=== PATIENT | female | born 1990 | race American Indian/Alaskan Native ===

== ENCOUNTER 2019-09-26 11:32 | Inpatient (IN) | payer MEDICAID ==
[2019-09-26] MEDS ORDERED: ACETAMINOPHEN 325 MG TAB PO PRN (12:45)
[2019-09-26] MEDS ORDERED: ONDANSETRON 4 MG/2 ML INJ IV PRN (12:45)
[2019-09-26] MEDS ORDERED: WITCH HAZEL/ GLYCERIN PAD TP PRN (12:45)
[2019-09-26] MEDS ORDERED: DOCUSATE SODIUM 100 MG CAP PO PRN (12:45)
[2019-09-26] MEDS ORDERED: diphenhydrAMINE 25 MG CAP PO PRN (12:45)
[2019-09-26] MEDS ORDERED: PRENATAL VIT27-FE FUMARATE-FOLIC ACID VIT TAB PO SCH (13:00)
[2019-09-26] MEDS: BETAMET ACET/BETAMET NA PH 6 MG/ML INJ 5 ML MDV IM SCH (14:50)
[2019-09-26 14:54] LABS: Bacteria,Urine 1+ /HPF (Negative); Bilirubin,Urine NEG (Negative); Blood,Urine SM (Negative); Color,Urine Yellow (Yellow); Urobilinogen,Urine < 2.0 mg/dL (<2.0)
[2019-09-26 14:58] LABS: WBC,Urine > 182.0 /HPF (0.0-6.0)
[2019-09-26] MEDS ORDERED: MAGNESIUM SULFATE 4 GM/100 ML BAG IV ONE (15:00)
--- NOTE | 2019-09-26 15:39 | History and Physical Report ---
History of Present Illness Date of examination: 09/26/19 Date of admission: 09/26/19 13:49 Chief complaint: Sent from office for rupture of membranes. History of present illness: Pt is a 29 yo at 27w3d EGA by 18wk US not c/w LMP who presents from [facility] for gross rupture of membranes diagnosed at the office. She reports leaking fluid for the past week. She had thought that it was a bacterial infection. She is not feeling movement today. She denies vaginal bleeding. She reports contractions every time she leaks fluid. Her co hanna has been complicated by EIF. Past History Past Medical History: other ("fluid around the heart") Past Surgical History: D&C Family/Genetic History: diabetes, hypertension Social history: no significant social history - Obstetrical History Expected Date of Delivery: 12/23/19 Actual Gestation: 27 Week(s) 3 Day(s) : 6 Para: 1 Hx # Term Pregnancies: 1 Induced : 4 Number of Living Children: 1 Medications and Allergies Allergies Allergy/AdvReac Type Severity Reaction Status Date / Time No Known Allergies Allergy Verified 09/26/19 11:37 Active Meds: Active Medications Acetaminophen (Tylenol) 650 mg PO Q4H PRN PRN Reason: Pain MILD(1-3)/Fever >100.5/ZHANG Betamethasone Acet/Betameth SodPhos (Celestone Soluspan) 12 mg IM Q24H ANNI Stop: 09/27/19 13:01 Last Admin: 09/26/19 14:50 Dose: 12 mg Documented by: Diphenhydramine HCl (Benadryl) 25 mg PO Q6H PRN PRN Reason: Itching Docusate Sodium (Colace) 100 mg PO Q12H PRN PRN Reason: Constipation Lactated Ringer's (Lactated Ringers) 1,000 mls @ 125 mls/hr IV DIRECT ANNI Ampicillin Sodium (Ampicillin/Ns 2 Gm/100 Ml) 2 gm in 100 mls @ 100 mls/hr IV Q6HR ANNI; Protocol Stop: 09/28/19 06:59 Magnesium Sulfate (Magnesium Sulfate 40gm/1000ml) 40 gm in 1,000 mls @ 50 mls/hr IV DIRECT ANNI Multivitamins/Iron/Calcium ( Vitamin) 1 each PO QDAY ANNI Ondansetron HCl (Zofran) 4 mg IV Q6H PRN PRN Reason: Nausea And Vomiting Witch Gem/Glycerin (Tucks Pad) 1 each TP PRN PRN PRN Reason: Hemorrhoids Review of Systems All systems: negative Genitourinary: leakage of fluid, contractions, no vaginal bleeding, no dysuria Psychiatric: sadness/tearfullness (given circumstance of hospital admission) - Vital Signs Vital signs: Vital Signs Pulse Pulse Ox 117 H 93 09/26/19 14:15 09/26/19 14:15 Temp Pulse Resp BP Pulse Ox 98.6 F 101 H 20 93/57 94 09/26/19 14:17 09/26/19 15:28 09/26/19 14:17 09/26/19 14:17 09/26/19 15:28 - Physical Exam Lungs: Positive: Normal air movement Abdomen: Positive: soft Genitourinary (Female): Positive: normal external genitalia Cervix: Positive: friable Uterus: Positive: enlarged (gravid, fundal height 28cm) Extremities: Positive: normal - Obstetrical FHR: category 1 Results Result Diagrams: 09/26/19 15:30 Abnormal lab results 09/26/19 Range/Units 14:02 Urine pH 8.0 H (5.0-7.0) Urine WBC (Auto) > 182.0 H (0.0-6.0) /HPF All other labs normal. Assessment and Plan A: 30 yo at 27w3d EGA prelabor rupture of membranes, clear P: Admit to antepartum service Betamethasone for surfactant development Magnesium sulfate for neuroprotection and tocolysis Latency antibiotics Continuous EFM Ultrasound for presentation and JAZMIN MD aware of patient Kassy Webb CNM
[2019-09-26] MEDS: AMPICILLIN/NS 2 GM/100 ML 2 GM/100 ML BAG IV SCH ×2 (15:53→22:00)
--- NOTE | 2019-09-26 15:53 | Ultrasound Report ---
Limited OB Ultrasound HISTORY: position, JAZMIN. Premature rupture of membranes. TECHNIQUE: Grayscale and color imaging performed. COMPARISON: None FINDINGS: There is a single viable intrauterine gestation which is cephalic in presentation. One of t he extremities appears to be interposed between the head and the cervix. The JAZMIN is 1 cm which is dec reased. Heart rate is 149 bpm. IMPRESSION: 1. Cephalic presentation with an extremity interposed between the head and the cervix. 2. Abnormal low JAZMIN consistent with history. Signer Name: Sudeep Combs MD Signed: 09/26/2019 3:49 PM Workstation Name: [id number]
[2019-09-26 16:21] LABS: Basophils % (Auto) 0.2 % (0.0-1.8); Hematocrit 30.9 % (30.3-42.9); Hemoglobin 10.1 gm/dl (10.1-14.3); Lymphocytes # (Auto) 0.9 K/mm3 (1.2-5.4); Lymphocytes % (Auto) 5.5 % (13.4-35.0); Mean Corpuscular HGB Conc 33 % (30-34); Mean Corpuscular Volume 84 fl (79-97); Monocytes # (Auto) 1.1 K/mm3 (0.0-0.8); Monocytes % (Auto) 7.1 % (0.0-7.3); Platelet Count 213 K/mm3 (140-440); Red Blood Count 3.67 M/mm3 (3.65-5.03); Red Cell Distribution Width 14.5 % (13.2-15.2)
[2019-09-26] MEDS: MAGNESIUM SULFATE 40GM/1000ML 40 GM/1,000 ML BAG IV SCH (16:22)
[2019-09-26] MEDS ORDERED: PROMETHAZINE 25 MG TAB PO PRN (16:33)
[2019-09-26] MEDS ORDERED: BUTORPHANOL 2 MG/1 ML INJ IV PRN ×2 (16:51→17:00)
--- NOTE | 2019-09-26 18:54 | Consultation ---
Consult Note - Parent Education I met with parent(s) and discussed the following:: Need for NICU admission, Poss ible need for intubation and surfactant or other resp support, Temperature regulation, Head ultrasounds to evaluate IVH, Possible need for IV fluids/TPN and IV antibiotics, Possible need for umbilical lines, Importance of providing breast milk & encouraged pumping aft delivery, Donor breast milk if baby meets criteria after , Slow feeding advancement and monitoring of tolerance. NG/OG feeds, Need to monitor for jaundice, Data for survival & survival without significant co-morbidities Parent(s) demonstrated understanding of all the information:: Yes Additional Comment: Mother adrrin consistently during consult. Offered to return at a later time, mother declined Assessment and Plan - Assessment Gestation:: 27 Estimated Weight: unknown Baby's gender: Female Additional Comment: Mother presented to L&D after OB office determined mother was ruptured an has been leaking for approx. 1 week per mother. PNR negative, GBS unknown, course complicated by MAVIS on US and referred to MFM but did not make it to appointment yet per records. - Plan Plan: Agree with Mag & steroids Will attend delivery Please call NICU with questions
[2019-09-27] MEDS: AMPICILLIN/NS 2 GM/100 ML 2 GM/100 ML BAG IV SCH ×2 (01:35→10:07)
[2019-09-27] MEDS: LACTATED RINGERS 1,000 ML IV SCH ×3 (01:36→21:42)
--- NOTE | 2019-09-27 07:58 | Progress Note ---
Assessment and Plan A/P IUP 27 weks PPROM PTL s/p betamethasone mag for neuroprotections abx latency started today s/p niccu consult awaiting MFM consult added abx for possible uti ( rocephin) Subjective - Subjective Date of service: 09/27/19 Principal diagnosis: PPROM, UTI Patient reports: loss of fluid, movement normal, no new complaints, no vaginal bleeding Objective - Vital Signs Vital Signs: Vital Signs - 12hr 09/26/19 09/26/19 09/26/19 19:58 20:00 20:02 Temperature Pulse Rate 92 H 108 H 99 H Respiratory Rate Blood Pressure O2 Sat by Pulse 100 100 100 Oximetry 09/26/19 09/26/19 09/26/19 20:04 20:06 20:08 Temperature Pulse Rate 99 H 101 H 100 H Respiratory Rate Blood Pressure O2 Sat by Pulse 100 100 100 Oximetry 09/26/19 09/26/19 09/26/19 20:10 20:11 20:12 Temperature Pulse Rate 100 H 101 H 96 H Respiratory Rate Blood Pressure 100/57 O2 Sat by Pulse 100 0 L 100 Oximetry 09/26/19 09/26/19 09/26/19 20:14 20:16 20:18 Temperature Pulse Rate 98 H 103 H 100 H Respiratory Rate Blood Pressure O2 Sat by Pulse 100 100 100 Oximetry 09/26/19 09/26/19 09/26/19 20:20 20:22 20:24 Temperature Pulse Rate 98 H 94 H 102 H Respiratory Rate Blood Pressure O2 Sat by Pulse 100 100 100 Oximetry 09/26/19 09/26/19 09/26/19 20:26 20:28 20:30 Temperature Pulse Rate 97 H 104 H 95 H Respiratory Rate Blood Pressure O2 Sat by Pulse 100 100 100 Oximetry 09/26/19 09/26/19 09/26/19 20:32 20:34 20:36 Temperature Pulse Rate 99 H 97 H 99 H Respiratory Rate Blood Pressure O2 Sat by Pulse 100 100 100 Oximetry 09/26/19 09/26/19 09/26/19 20:38 20:40 20:42 Temperature Pulse Rate 98 H 97 H 99 H Respiratory Rate Blood Pressure O2 Sat by Pulse 100 99 100 Oximetry 09/26/19 09/26/19 09/26/19 20:44 20:46 20:48 Temperature Pulse Rate 98 H 95 H 96 H Respiratory Rate Blood Pressure O2 Sat by Pulse 100 100 100 Oximetry 09/26/19 09/26/19 09/26/19 20:50 20:52 20:54 Temperature Pulse Rate 100 H 97 H 99 H Respiratory Rate Blood Pressure O2 Sat by Pulse 100 100 100 Oximetry 09/26/19 09/26/19 09/26/19 20:56 20:58 21:00 Temperature Pulse Rate 105 H 97 H 98 H Respiratory Rate Blood Pressure O2 Sat by Pulse 99 100 100 Oximetry 09/26/19 09/26/19 09/26/19 21:02 21:04 21:06 Temperature Pulse Rate 99 H 104 H 103 H Respiratory Rate Blood Pressure O2 Sat by Pulse 100 100 100 Oximetry 09/26/19 09/26/19 09/26/19 21:08 21:10 21:11 Temperature Pulse Rate 97 H 100 H 101 H Respiratory Rate Blood Pressure 102/61 O2 Sat by Pulse 100 100 Oximetry 09/26/19 09/26/19 09/26/19 21:12 21:14 21:16 Temperature Pulse Rate 101 H 100 H 102 H Respiratory Rate Blood Pressure O2 Sat by Pulse 100 100 100 Oximetry 09/26/19 09/26/19 09/26/19 21:18 21:20 21:22 Temperature Pulse Rate 100 H 103 H 98 H Respiratory Rate Blood Pressure O2 Sat by Pulse 100 99 100 Oximetry 09/26/19 09/26/19 09/26/19 21:24 21:26 21:28 Temperature Pulse Rate 105 H 103 H 99 H Respiratory Rate Blood Pressure O2 Sat by Pulse 100 100 100 Oximetry 09/26/19 09/26/19 09/26/19 21:30 21:32 21:34 Temperature Pulse Rate 103 H 99 H 102 H Respiratory Rate Blood Pressure O2 Sat by Pulse 100 100 100 Oximetry 09/26/19 09/26/19 09/26/19 21:36 21:38 21:40 Temperature Pulse Rate 94 H 100 H 99 H Respiratory Rate Blood Pressure O2 Sat by Pulse 100 100 100 Oximetry 09/26/19 09/26/19 09/26/19 21:42 21:44 21:46 Temperature Pulse Rate 102 H 99 H 96 H Respiratory Rate Blood Pressure O2 Sat by Pulse 100 100 100 Oximetry 09/26/19 09/26/19 09/26/19 21:48 21:50 21:52 Temperature Pulse Rate 100 H 101 H 103 H Respiratory Rate Blood Pressure O2 Sat by Pulse 100 100 99 Oximetry 09/26/19 09/26/19 09/26/19 21:54 21:56 21:58 Temperature Pulse Rate 99 H 90 99 H Respiratory Rate Blood Pressure O2 Sat by Pulse 100 100 100 Oximetry 09/26/19 09/26/19 09/26/19 22:00 22:02 22:04 Temperature Pulse Rate 101 H 100 H 99 H Respiratory Rate Blood Pressure O2 Sat by Pulse 98 98 100 Oximetry 09/26/19 09/26/19 09/26/19 22:06 22:08 22:10 Temperature Pulse Rate 98 H 98 H 98 H Respiratory Rate Blood Pressure O2 Sat by Pulse 100 100 100 Oximetry 09/26/19 09/26/19 09/26/19 22:11 22:12 22:14 Temperature Pulse Rate 100 H 101 H 100 H Respiratory Rate Blood Pressure 95/62 O2 Sat by Pulse 100 99 Oximetry 09/26/19 09/26/19 09/26/19 22:16 22:18 22:20 Temperature Pulse Rate 96 H 91 H 96 H Respiratory Rate Blood Pressure O2 Sat by Pulse 97 100 100 Oximetry 09/26/19 09/26/19 09/26/19 22:22 22:24 22:26 Temperature Pulse Rate 94 H 95 H 96 H Respiratory Rate Blood Pressure O2 Sat by Pulse 98 100 100 Oximetry 09/26/19 09/26/19 09/26/19 22:28 22:30 22:32 Temperature Pulse Rate 95 H 100 H 95 H Respiratory Rate Blood Pressure O2 Sat by Pulse 100 100 100 Oximetry 09/26/19 09/26/19 09/26/19 22:34 22:36 22:38 Temperature Pulse Rate 94 H 95 H 92 H Respiratory Rate Blood Pressure O2 Sat by Pulse 100 100 99 Oximetry 09/26/19 09/26/19 09/26/19 22:39 22:40 22:42 Temperature 97.9 F Pulse Rate 94 H 92 H Respiratory 16 Rate Blood Pressure O2 Sat by Pulse 100 99 Oximetry 09/26/19 09/26/19 09/26/19 22:44 22:46 22:48 Temperature Pulse Rate 87 95 H 98 H Respiratory Rate Blood Pressure O2 Sat by Pulse 99 98 100 Oximetry 09/26/19 09/26/19 09/26/19 22:50 22:52 22:54 Temperature Pulse Rate 94 H 96 H 94 H Respiratory Rate Blood Pressure O2 Sat by Pulse 100 100 100 Oximetry 09/26/19 09/26/19 09/26/19 22:56 22:58 23:00 Temperature Pulse Rate 99 H 94 H 93 H Respiratory Rate Blood Pressure O2 Sat by Pulse 100 100 100 Oximetry 09/26/19 09/26/19 09/26/19 23:02 23:04 23:06 Temperature Pulse Rate 93 H 94 H 93 H Respiratory Rate Blood Pressure O2 Sat by Pulse 100 100 98 Oximetry 09/26/19 09/26/19 09/26/19 23:07 23:08 23:10 Temperature Pulse Rate 89 94 H 94 H Respiratory Rate Blood Pressure O2 Sat by Pulse 94 98 98 Oximetry 09/26/19 09/26/19 09/26/19 23:11 23:12 23:14 Temperature Pulse Rate 90 92 H 94 H Respiratory Rate Blood Pressure 90/53 O2 Sat by Pulse 98 100 Oximetry 09/26/19 09/26/19 09/26/19 23:16 23:18 23:20 Temperature Pulse Rate 92 H 93 H 97 H Respiratory Rate Blood Pressure O2 Sat by Pulse 100 100 100 Oximetry 09/26/19 09/26/19 09/26/19 23:22 23:24 23:26 Temperature Pulse Rate 99 H 93 H 94 H Respiratory Rate Blood Pressure O2 Sat by Pulse 99 100 99 Oximetry 09/26/19 09/26/19 09/26/19 23:28 23:30 23:32 Temperature Pulse Rate 96 H 97 H 95 H Respiratory Rate Blood Pressure O2 Sat by Pulse 97 100 100 Oximetry 09/26/19 09/26/19 09/26/19 23:34 23:36 23:38 Temperature Pulse Rate 93 H 97 H 107 H Respiratory Rate Blood Pressure O2 Sat by Pulse 100 98 100 Oximetry 09/26/19 09/26/19 09/26/19 23:40 23:42 23:44 Temperature 98.1 F Pulse Rate 98 H 91 H 95 H Respiratory 16 Rate Blood Pressure O2 Sat by Pulse 99 100 100 Oximetry 09/26/19 09/26/19 09/26/19 23:46 23:48 23:50 Temperature Pulse Rate 95 H 94 H 91 H Respiratory Rate Blood Pressure O2 Sat by Pulse 100 99 100 Oximetry 09/26/19 09/26/19 09/26/19 23:52 23:54 23:56 Temperature Pulse Rate 92 H 94 H 97 H Respiratory Rate Blood Pressure O2 Sat by Pulse 100 100 100 Oximetry 09/26/19 09/27/19 09/27/19 23:58 00:00 00:02 Temperature Pulse Rate 95 H 97 H 90 Respiratory Rate Blood Pressure O2 Sat by Pulse 100 100 100 Oximetry 09/27/19 09/27/19 09/27/19 00:04 00:06 00:08 Temperature Pulse Rate 94 H 95 H 90 Respiratory Rate Blood Pressure O2 Sat by Pulse 99 99 99 Oximetry 09/27/19 09/27/19 09/27/19 00:10 00:11 00:12 Temperature Pulse Rate 90 86 87 Respiratory Rate Blood Pressure 92/59 O2 Sat by Pulse 100 100 Oximetry 09/27/19 09/27/19 09/27/19 00:14 00:16 00:18 Temperature Pulse Rate 87 89 87 Respiratory Rate Blood Pressure O2 Sat by Pulse 100 99 100 Oximetry 09/27/19 09/27/19 09/27/19 00:20 00:22 00:24 Temperature Pulse Rate 93 H 92 H 91 H Respiratory Rate Blood Pressure O2 Sat by Pulse 100 99 96 Oximetry 09/27/19 09/27/19 09/27/19 00:26 00:28 00:30 Temperature Pulse Rate 90 89 93 H Respiratory Rate Blood Pressure O2 Sat by Pulse 100 100 100 Oximetry 09/27/19 09/27/19 09/27/19 00:32 00:34 00:36 Temperature Pulse Rate 94 H 94 H 88 Respiratory Rate Blood Pressure O2 Sat by Pulse 100 100 100 Oximetry 09/27/19 09/27/19 09/27/19 00:38 00:40 00:42 Temperature Pulse Rate 94 H 94 H 92 H Respiratory 14 Rate Blood Pressure O2 Sat by Pulse 99 99 99 Oximetry 09/27/19 09/27/19 09/27/19 00:44 00:46 00:48 Temperature Pulse Rate 90 90 91 H Respiratory Rate Blood Pressure O2 Sat by Pulse 98 98 98 Oximetry 09/27/19 09/27/19 09/27/19 00:50 00:52 00:54 Temperature Pulse Rate 97 H 88 94 H Respiratory Rate Blood Pressure O2 Sat by Pulse 99 100 100 Oximetry 09/27/19 09/27/1920 00:56 00:58 01:00 Temperature Pulse Rate 102 H 93 H 91 H Respiratory Rate Blood Pressure O2 Sat by Pulse 97 100 100 Oximetry 09/27/19 09/27/19 09/27/19 01:02 01:04 01:06 Temperature Pulse Rate 87 95 H 98 H Respiratory Rate Blood Pressure O2 Sat by Pulse 100 100 100 Oximetry 09/27/19 09/27/19 09/27/19 01:08 01:10 01:11 Temperature 98.4 F Pulse Rate 97 H 79 94 H Respiratory Rate Blood Pressure 95/53 O2 Sat by Pulse 100 98 Oximetry 09/27/19 09/27/19 09/27/19 01:12 01:14 01:16 Temperature Pulse Rate 102 H 100 H 94 H Respiratory Rate Blood Pressure O2 Sat by Pulse 100 100 100 Oximetry 09/27/19 09/27/19 09/27/19 01:18 01:20 01:22 Temperature Pulse Rate 94 H 91 H 94 H Respiratory Rate Blood Pressure O2 Sat by Pulse 100 99 100 Oximetry 09/27/19 09/27/19 09/27/19 01:24 01:26 01:28 Temperature Pulse Rate 92 H 91 H 93 H Respiratory Rate Blood Pressure O2 Sat by Pulse 100 100 100 Oximetry 09/27/19 09/27/19 09/27/19 01:30 01:32 01:34 Temperature Pulse Rate 92 H 90 94 H Respiratory Rate Blood Pressure O2 Sat by Pulse 99 99 99 Oximetry 09/27/19 09/27/19 09/27/19 01:36 01:38 01:40 Temperature Pulse Rate 95 H 86 89 Respiratory 16 Rate Blood Pressure O2 Sat by Pulse 98 98 100 Oximetry 09/27/19 09/27/19 09/27/19 01:42 01:44 01:46 Temperature Pulse Rate 88 90 90 Respiratory Rate Blood Pressure O2 Sat by Pulse 99 97 99 Oximetry 09/27/19 09/27/19 09/27/19 01:48 01:50 01:52 Temperature Pulse Rate 92 H 92 H 92 H Respiratory Rate Blood Pressure O2 Sat by Pulse 98 97 97 Oximetry 09/27/19 09/27/19 09/27/19 01:54 01:56 01:58 Temperature Pulse Rate 93 H 93 H 95 H Respiratory Rate Blood Pressure O2 Sat by Pulse 98 97 97 Oximetry 09/27/19 09/27/19 09/27/19 02:00 02:02 02:04 Temperature Pulse Rate 94 H 95 H 96 H Respiratory Rate Blood Pressure O2 Sat by Pulse 97 97 97 Oximetry 09/27/19 09/27/19 09/27/19 02:06 02:08 02:10 Temperature Pulse Rate 95 H 96 H 93 H Respiratory Rate Blood Pressure O2 Sat by Pulse 97 98 97 Oximetry 09/27/19 09/27/19 09/27/19 02:11 02:12 02:14 Temperature Pulse Rate 93 H 94 H 97 H Respiratory Rate Blood Pressure 91/54 O2 Sat by Pulse 97 98 Oximetry 09/27/19 09/27/19 09/27/19 02:16 02:18 02:20 Temperature Pulse Rate 94 H 92 H 97 H Respiratory Rate Blood Pressure O2 Sat by Pulse 97 98 98 Oximetry 09/27/19 09/27/19 09/27/19 02:22 02:24 02:26 Temperature Pulse Rate 92 H 95 H 92 H Respiratory Rate Blood Pressure O2 Sat by Pulse 98 98 98 Oximetry 09/27/19 09/27/19 09/27/19 02:28 02:30 02:32 Temperature Pulse Rate 94 H 94 H 89 Respiratory Rate Blood Pressure O2 Sat by Pulse 98 98 99 Oximetry 09/27/19 09/27/19 09/27/19 02:34 02:36 02:38 Temperature Pulse Rate 94 H 88 89 Respiratory Rate Blood Pressure O2 Sat by Pulse 97 97 97 Oximetry 09/27/19 09/27/19 09/27/19 02:40 02:42 02:44 Temperature 98.0 F Pulse Rate 87 89 98 H Respiratory 14 Rate Blood Pressure O2 Sat by Pulse 98 97 98 Oximetry 09/27/19 09/27/19 09/27/19 02:46 02:48 02:50 Temperature Pulse Rate 92 H 86 86 Respiratory Rate Blood Pressure O2 Sat by Pulse 98 98 99 Oximetry 09/27/19 09/27/19 09/27/19 02:52 02:54 02:56 Temperature Pulse Rate 86 83 84 Respiratory Rate Blood Pressure O2 Sat by Pulse 99 99 97 Oximetry 09/27/19 09/27/19 09/27/19 02:58 03:00 03:02 Temperature Pulse Rate 83 82 86 Respiratory Rate Blood Pressure O2 Sat by Pulse 98 98 98 Oximetry 09/27/19 09/27/19 09/27/19 03:04 03:06 03:08 Temperature Pulse Rate 85 86 88 Respiratory Rate Blood Pressure O2 Sat by Pulse 98 98 98 Oximetry 09/27/19 09/27/19 09/27/19 03:10 03:11 03:12 Temperature Pulse Rate 85 95 H 85 Respiratory Rate Blood Pressure 90/55 O2 Sat by Pulse 98 98 Oximetry 09/27/19 09/27/19 09/27/19 03:14 03:16 03:18 Temperature Pulse Rate 86 85 86 Respiratory Rate Blood Pressure O2 Sat by Pulse 98 98 98 Oximetry 09/27/19 09/27/19 09/27/19 03:20 03:22 03:24 Temperature Pulse Rate 87 87 87 Respiratory Rate Blood Pressure O2 Sat by Pulse 98 98 98 Oximetry 09/27/19 09/27/19 09/27/19 03:26 03:28 03:30 Temperature Pulse Rate 86 88 93 H Respiratory Rate Blood Pressure O2 Sat by Pulse 98 98 98 Oximetry 09/27/19 09/27/19 09/27/19 03:32 03:34 03:36 Temperature Pulse Rate 90 83 95 H Respiratory Rate Blood Pressure O2 Sat by Pulse 98 98 99 Oximetry 09/27/19 09/27/19 09/27/19 03:38 03:40 03:42 Temperature 98.3 F Pulse Rate 98 H 92 H 95 H Respiratory 14 Rate Blood Pressure O2 Sat by Pulse 100 99 98 Oximetry 09/27/19 09/27/19 09/27/19 03:44 03:46 03:48 Temperature Pulse Rate 84 85 85 Respiratory Rate Blood Pressure O2 Sat by Pulse 100 100 100 Oximetry 09/27/19 09/27/19 09/27/19 03:50 03:52 03:54 Temperature Pulse Rate 88 88 84 Respiratory Rate Blood Pressure O2 Sat by Pulse 100 100 100 Oximetry 09/27/19 09/27/19 09/27/19 03:56 03:58 04:00 Temperature Pulse Rate 83 85 87 Respiratory Rate Blood Pressure O2 Sat by Pulse 99 100 99 Oximetry 09/27/19 09/27/19 09/27/19 04:02 04:04 04:06 Temperature Pulse Rate 86 86 84 Respiratory Rate Blood Pressure O2 Sat by Pulse 99 99 99 Oximetry 09/27/19 09/27/19 09/27/19 04:08 04:10 04:11 Temperature Pulse Rate 80 82 90 Respiratory Rate Blood Pressure 100/58 O2 Sat by Pulse 98 98 Oximetry 09/27/19 09/27/19 09/27/19 04:12 04:14 04:16 Temperature Pulse Rate 85 85 85 Respiratory Rate Blood Pressure O2 Sat by Pulse 99 98 98 Oximetry 09/27/19 09/27/19 09/27/19 04:18 04:20 04:22 Temperature Pulse Rate 86 86 85 Respiratory Rate Blood Pressure O2 Sat by Pulse 98 98 98 Oximetry 09/27/19 09/27/19 09/27/19 04:24 04:26 04:28 Temperature Pulse Rate 87 86 86 Respiratory Rate Blood Pressure O2 Sat by Pulse 98 98 98 Oximetry 09/27/19 09/27/19 09/27/19 04:30 04:32 04:34 Temperature Pulse Rate 82 88 83 Respiratory Rate Blood Pressure O2 Sat by Pulse 99 99 98 Oximetry 09/27/19 09/27/19 09/27/19 04:36 04:38 04:40 Temperature Pulse Rate 83 86 88 Respiratory 16 Rate Blood Pressure O2 Sat by Pulse 98 99 98 Oximetry 09/27/19 09/27/19 09/27/19 04:42 04:44 04:46 Temperature Pulse Rate 89 89 91 H Respiratory Rate Blood Pressure O2 Sat by Pulse 98 98 98 Oximetry 09/27/19 09/27/19 09/27/19 04:48 04:50 04:52 Temperature Pulse Rate 89 90 93 H Respiratory Rate Blood Pressure O2 Sat by Pulse 98 98 96 Oximetry 09/27/19 09/27/19 09/27/19 04:54 04:56 04:58 Temperature Pulse Rate 93 H 87 84 Respiratory Rate Blood Pressure O2 Sat by Pulse 98 98 98 Oximetry 09/27/19 09/27/19 09/27/19 05:00 05:02 05:04 Temperature Pulse Rate 85 87 85 Respiratory Rate Blood Pressure O2 Sat by Pulse 98 98 98 Oximetry 09/27/19 09/27/19 09/27/19 05:06 05:08 05:10 Temperature Pulse Rate 82 84 84 Respiratory Rate Blood Pressure O2 Sat by Pulse 98 98 98 Oximetry 09/27/19 09/27/19 09/27/19 05:11 05:12 05:14 Temperature Pulse Rate 85 84 84 Respiratory Rate Blood Pressure 92/58 O2 Sat by Pulse 99 98 Oximetry 09/27/19 09/27/19 09/27/19 05:16 05:18 05:20 Temperature Pulse Rate 95 H 88 87 Respiratory Rate Blood Pressure O2 Sat by Pulse 96 99 100 Oximetry 09/27/19 09/27/19 09/27/19 05:22 05:24 05:26 Temperature Pulse Rate 85 82 81 Respiratory Rate Blood Pressure O2 Sat by Pulse 100 100 100 Oximetry 09/27/19 09/27/19 09/27/19 05:28 05:30 05:32 Temperature Pulse Rate 84 82 90 Respiratory Rate Blood Pressure O2 Sat by Pulse 100 100 100 Oximetry 09/27/19 09/27/19 09/27/19 05:34 05:36 05:38 Temperature Pulse Rate 87 74 85 Respiratory Rate Blood Pressure O2 Sat by Pulse 100 93 100 Oximetry 09/27/19 09/27/19 09/27/19 05:40 05:42 05:44 Temperature 98.2 F Pulse Rate 84 83 84 Respiratory 14 Rate Blood Pressure O2 Sat by Pulse 98 100 100 Oximetry 09/27/19 09/27/19 09/27/19 05:46 05:48 05:50 Temperature Pulse Rate 85 87 85 Respiratory Rate Blood Pressure O2 Sat by Pulse 100 99 100 Oximetry 09/27/19 09/27/19 09/27/19 05:52 05:54 05:56 Temperature Pulse Rate 87 85 85 Respiratory Rate Blood Pressure O2 Sat by Pulse 100 100 100 Oximetry 09/27/19 09/27/19 09/27/19 05:58 06:00 06:02 Temperature Pulse Rate 82 85 83 Respiratory Rate Blood Pressure O2 Sat by Pulse 100 98 99 Oximetry 09/27/19 09/27/19 09/27/19 06:04 06:06 06:08 Temperature Pulse Rate 82 85 83 Respiratory Rate Blood Pressure O2 Sat by Pulse 98 99 98 Oximetry 09/27/19 09/27/19 09/27/19 06:10 06:11 06:12 Temperature Pulse Rate 86 90 94 H Respiratory Rate Blood Pressure 88/54 O2 Sat by Pulse 98 99 Oximetry 09/27/19 09/27/19 09/27/19 06:14 06:16 06:18 Temperature Pulse Rate 84 83 83 Respiratory Rate Blood Pressure 89/58 O2 Sat by Pulse 99 98 98 Oximetry 09/27/19 09/27/1920 06:20 06:22 06:24 Temperature Pulse Rate 84 86 87 Respiratory Rate Blood Pressure O2 Sat by Pulse 98 98 98 Oximetry 09/27/19 09/27/19 09/27/19 06:26 06:28 06:30 Temperature Pulse Rate 86 88 89 Respiratory Rate Blood Pressure O2 Sat by Pulse 98 98 98 Oximetry 09/27/19 09/27/19 09/27/19 06:32 06:34 06:36 Temperature Pulse Rate 90 90 91 H Respiratory Rate Blood Pressure O2 Sat by Pulse 98 98 98 Oximetry 09/27/19 09/27/19 09/27/19 06:38 06:40 06:42 Temperature Pulse Rate 91 H 89 89 Respiratory 14 Rate Blood Pressure O2 Sat by Pulse 98 99 99 Oximetry 09/27/19 09/27/19 09/27/19 06:44 06:46 06:48 Temperature Pulse Rate 94 H 91 H 91 H Respiratory Rate Blood Pressure O2 Sat by Pulse 99 99 99 Oximetry 09/27/19 09/27/19 09/27/19 06:50 06:51 06:52 Temperature 98.1 F Pulse Rate 93 H 88 Respiratory Rate Blood Pressure O2 Sat by Pulse 99 100 Oximetry 09/27/19 09/27/19 09/27/19 06:54 06:55 06:56 Temperature Pulse Rate 91 H 91 H 89 Respiratory Rate Blood Pressure O2 Sat by Pulse 81 L 76 L 100 Oximetry 09/27/19 09/27/19 09/27/19 06:58 07:00 07:02 Temperature Pulse Rate 82 84 81 Respiratory Rate Blood Pressure O2 Sat by Pulse 100 93 100 Oximetry 09/27/19 09/27/19 09/27/19 07:04 07:06 07:08 Temperature Pulse Rate 90 85 86 Respiratory Rate Blood Pressure O2 Sat by Pulse 99 100 100 Oximetry 09/27/19 09/27/19 09/27/19 07:10 07:11 07:12 Temperature Pulse Rate 86 85 88 Respiratory Rate Blood Pressure 93/57 O2 Sat by Pulse 100 98 Oximetry 09/27/19 09/27/19 09/27/19 07:14 07:16 07:18 Temperature Pulse Rate 89 89 88 Respiratory Rate Blood Pressure O2 Sat by Pulse 100 100 99 Oximetry 09/27/19 09/27/19 09/27/19 07:19 07:20 07:22 Temperature 97.7 F Pulse Rate 88 83 Respiratory Rate Blood Pressure O2 Sat by Pulse 100 100 Oximetry 09/27/19 09/27/19 09/27/19 07:24 07:26 07:28 Temperature Pulse Rate 83 91 H 90 Respiratory Rate Blood Pressure O2 Sat by Pulse 100 100 100 Oximetry 09/27/19 09/27/19 09/27/19 07:30 07:32 07:34 Temperature Pulse Rate 93 H 90 86 Respiratory Rate Blood Pressure O2 Sat by Pulse 100 99 100 Oximetry 09/27/19 09/27/19 09/27/19 07:36 07:38 07:40 Temperature Pulse Rate 83 85 85 Respiratory Rate Blood Pressure O2 Sat by Pulse 100 99 99 Oximetry 09/27/19 09/27/19 09/27/19 07:42 07:44 07:46 Temperature Pulse Rate 88 86 85 Respiratory Rate Blood Pressure O2 Sat by Pulse 98 98 98 Oximetry 09/27/19 09/27/19 09/27/19 07:48 07:50 07:52 Temperature Pulse Rate 88 90 88 Respiratory Rate Blood Pressure O2 Sat by Pulse 98 98 98 Oximetry 09/27/19 07:54 Temperature Pulse Rate 88 Respiratory Rate Blood Pressure O2 Sat by Pulse 98 Oximetry - Exam Breasts: normal Cardiovascular: Regular rate, Normal S1 Lungs: Clear to auscultation, Normal air movement Abdomen: Present: normal appearance, soft, normal bowel sounds. Absent: distention, tenderness, guarding Vulva: both: normal Uterus: Present: normal, firm, fundal height below umbilicus. Absent: bogginess, tenderness FHR: category 1 Cervical Dilatation: 2 Uterine Contraction Pattern: Irregular Uterine Tone Measurement Phase: Contraction Uterine Contraction Intensity: Mild Extremities: normal Deep Tendon Reflex Grade: Normal +2 - Labs Labs: Abnormal Labs 09/26/19 09/26/19 09/26/19 14:02 15:30 19:56 WBC 16.0 H Lymph % (Auto) 5.5 L Lymph # 0.9 L [place] # 1.1 H Seg Neutrophils % 87.2 H Seg Neutrophils # 14.0 H Magnesium 5.70 H Urine pH 8.0 H Urine WBC (Auto) > 182.0 H 09/27/19 00:50 WBC Lymph % (Auto) Lymph # [place] # Seg Neutrophils % Seg Neutrophils # Magnesium 6.40 H Urine pH Urine WBC (Auto) Laboratory Results - last 24 hr 09/26/19 09/26/19 09/26/19 14:02 15:30 15:30 WBC 16.0 H RBC 3.67 Hgb 10.1 Hct 30.9 MCV 84 MCH 28 MCHC 33 RDW 14.5 Plt Count 213 Lymph % (Auto) 5.5 L [place] % (Auto) 7.1 Eos % (Auto) 0.0 Baso % (Auto) 0.2 Lymph # 0.9 L [place] # 1.1 H Eos # 0.0 Baso # 0.0 Seg Neutrophils % 87.2 H Seg Neutrophils # 14.0 H Magnesium Urine Color Yellow Urine Turbidity Cloudy Urine pH 8.0 H Ur Specific [place] 1.008 Urine Protein 30 mg/dl Urine Glucose (UA) Neg Urine Ketones Tr Urine Blood Sm Urine Nitrite Neg Urine Bilirubin Neg Urine Urobilinogen < 2.0 Ur Leukocyte Esterase Lg Urine WBC (Auto) > 182.0 H Urine RBC (Auto) 37.0 U Epithel Cells (Auto) 2.0 Urine Bacteria (Auto) 1+ Urine WBC Clumps 3+ Blood Type O POSITIVE Antibody Screen Negative 09/26/19 09/27/19 19:56 00:50 WBC RBC Hgb Hct MCV MCH MCHC RDW Plt Count Lymph % (Auto) [place] % (Auto) Eos % (Auto) Baso % (Auto) Lymph # [place] # Eos # Baso # Seg Neutrophils % Seg Neutrophils # Magnesium 5.70 H 6.40 H Urine Color Urine Turbidity Urine pH Ur Specific [place] Urine Protein Urine Glucose (UA) Urine Ketones Urine Blood Urine Nitrite Urine Bilirubin Urine Urobilinogen Ur Leukocyte Esterase Urine WBC (Auto) Urine RBC (Auto) U Epithel Cells (Auto) Urine Bacteria (Auto) Urine WBC Clumps Blood Type Antibody Screen
[2019-09-27] MEDS ORDERED: cefTRIAXone/NS 1 GM/50 ML 1 GM/50 ML BAG IV SCH (10:00)
--- NOTE | 2019-09-27 10:52 | Consultation ---
History of Present Illness Consult date: 09/27/19 Reason for consult: PROM History of present illness: Ms. Allison is a 29 y/o at 27+4 wks GA who is admitted in the setting of prelabor rupture of membranes. In discussion with the patient, the patient states that she started having leakage of clear fluid from the vagina last week but did not contact her OBGYN. She presented to a routine outpatient appointment yesterday and was found to be grossly ruptured and admitted to the hospital. She has been placed on latency antibiotics, magnesium sulfate and betamethasone. Currently, she denies CTX/VB. She reports leakage of fluid per vagina. +FM. The patient states that she had a cervical exam and was told that she is 2cm dilated. Past History Past Medical History: other ("fluid around the heart") Past Surgical History: D&C Family/Genetic History: diabetes, hypertension - Obstetrical History : 6 Para: 1 Hx # Term Pregnancies: 1 Spontaneous Abortions: 4 Number of Living Children: 1 Medications and Allergies Allergies Allergy/AdvReac Type Severity Reaction Status Date / Time No Known Allergies Allergy Verified 09/26/19 11:37 Active Meds: Active Medications Acetaminophen (Tylenol) 650 mg PO Q4H PRN PRN Reason: Pain MILD(1-3)/Fever >100.5/ZHANG Last Admin: 09/26/19 16:10 Dose: 650 mg Documented by: Betamethasone Acet/Betameth SodPhos (Celestone Soluspan) 12 mg IM Q24H ANNI Stop: 09/27/19 13:01 Last Admin: 09/26/19 14:50 Dose: 12 mg Documented by: Butorphanol Tartrate (Stadol) 2 mg IV Q2H PRN PRN Reason: Labor Pain Diphenhydramine HCl (Benadryl) 25 mg PO Q6H PRN PRN Reason: Itching Docusate Sodium (Colace) 100 mg PO Q12H PRN PRN Reason: Constipation Lactated Ringer's (Lactated Ringers) 1,000 mls @ 125 mls/hr IV DIRECT ANNI Last Admin: 09/27/19 01:36 Dose: 125 mls/hr Documented by: Ampicillin Sodium (Ampicillin/Ns 2 Gm/100 Ml) 2 gm in 100 mls @ 100 mls/hr IV Q6HR ANNI; Protocol Stop: 09/28/19 06:59 Last Admin: 09/27/19 10:07 Dose: 100 mls/hr Documented by: Magnesium Sulfate (Magnesium Sulfate 40gm/1000ml) 40 gm in 1,000 mls @ 50 mls/hr IV DIRECT ANNI Last Admin: 09/26/19 16:22 Dose: 2 gm/hr, 50 mls/hr Documented by: Ceftriaxone Sodium (Rocephin/Ns 1 Gm/50 Ml) 1 gm in 50 mls @ 100 mls/hr IV Q24HR ANNI; Protocol Erythromycin Lactobionate 250 (mg/ Sodium Chloride) 100 mls @ 100 mls/hr IV Q6HR ANNI; Protocol Stop: 09/29/19 06:59 Multivitamins/Iron/Calcium ( Vitamin) 1 each PO QDAY ANNI Last Admin: 09/27/19 10:07 Dose: 1 each Documented by: Ondansetron HCl (Zofran) 4 mg IV Q6H PRN PRN Reason: Nausea And Vomiting Promethazine HCl (Phenergan) 25 mg PO Q6H PRN PRN Reason: Nausea And Vomiting Witch Gem/Glycerin (Tucks Pad) 1 each TP PRN PRN PRN Reason: Hemorrhoids - Vital Signs Vital signs: Vital Signs Pulse Pulse Ox 117 H 93 09/26/19 14:15 09/26/19 14:15 Temp Pulse Resp BP Pulse Ox 98.4 F 85 14 90/57 100 09/27/19 10:12 09/27/19 10:46 09/27/19 06:40 09/27/19 10:11 09/27/19 10:46 - Physical Exam Breasts: Positive: deferred Abdomen: Positive: other (No ruq/epigastric tenderness. No fundal tenderness. ) Uterus: Positive: other (Non tender fundus) Results Result Diagrams: 09/26/19 15:30 Abnormal lab results 09/26/19 09/26/19 09/26/19 Range/Units 14:02 15:30 19:56 WBC 16.0 H (4.5-11.0) K/mm3 Lymph % (Auto) 5.5 L (13.4-35.0) % Lymph # 0.9 L (1.2-5.4) K/mm3 [place] # 1.1 H (0.0-0.8) K/mm3 Seg Neutrophils % 87.2 H (40.0-70.0) % Seg Neutrophils # 14.0 H (1.8-7.7) K/mm3 Magnesium 5.70 H (1.7-2.3) mg/dL Urine pH 8.0 H (5.0-7.0) Urine WBC (Auto) > 182.0 H (0.0-6.0) /HPF 09/27/19 Range/Units 00:50 WBC (4.5-11.0) K/mm3 Lymph % (Auto) (13.4-35.0) % Lymph # (1.2-5.4) K/mm3 [place] # (0.0-0.8) K/mm3 Seg Neutrophils % (40.0-70.0) % Seg Neutrophils # (1.8-7.7) K/mm3 Magnesium 6.40 H (1.7-2.3) mg/dL Urine pH (5.0-7.0) Urine WBC (Auto) (0.0-6.0) /HPF All other labs normal. Ultrasound: report reviewed Assessment and Plan IMPRESSIONS: IUP at 27+4 weeks gestation prelabor rupture of membranes 2cm dilated s/p Neonatology consultation RECOMMENDATIONS: I reviewed the pathophysiology of PPROM with the patient today and discussed that because of PPROM, the is now exposed to the outside vaginal romina, which increases the risk for infection, inflammation, intra-amniotic infection. Patients with PPROM also are at risk for cord prolapse, placental abruption and IUFD. Therefore, inpatient management until delivery is recommended. Administerer betamethasone as you are, complete the steroid course today. Continue latency antibiotics per protocol as you are Magnesium sulfate for neuroprotection per protocol, will be completed today for a total of 24 hours Tocolysis in the setting of PPROM is CONTRAINDICATED, as this can mask ab ruption and intra-amniotic infection Obtain GBS PCR Daily NSTs BPPs weekly Please obtain a growth ultrasound now and every 3-4 weeks Please obtain a Neonatology consultation The patient should be delivered at 34 weeks, if the patient demonstrates reassuring maternal- status. Reasons for earlier delivery would include the following: signs of intra- amniotic infection (abnormal discharge, maternal fever, maternal/ tachycardia refractory to intervention, sepsis, placental abruption, cord prolapse, non-reassuring status, progression of labor process beyond 5 cm). The patient was instructed on kick counts and signs of infection today. When the patient is to be induced, please initiate GBS prophylaxis, if indicated PPROM is not a contraindication to vaginal delivery. delivery should be reserved for the routine obstetrical indications Reviewed with the patient that greater than 50% of patients will go on to deliver within the next week. Discussed that bedrest is CONTRAINDICATED, as this can increase the risk of VTE but also maternal de-conditioning. These recommendations were called to Dr. Viviane Arredondo at 1053AM.
[2019-09-27] MEDS: ERYTHROMYCIN LACTOBIONATE 250 MG in SODIUM CHLORIDE 0.9% 100 ML IV SCH ×2 (12:45→21:43)
[2019-09-27] MEDS: BETAMET ACET/BETAMET NA PH 6 MG/ML INJ 5 ML MDV IM SCH (13:38)
[2019-09-27] MEDS: MAGNESIUM SULFATE 40GM/1000ML 40 GM/1,000 ML BAG IV SCH (13:42)
--- NOTE | 2019-09-27 15:59 | Ultrasound Report ---
ULTRASOUND OBSTETRIC Indication: estimate growth Findings: There is a single intrauterine . BPD = 6.5 cm = 26 weeks, 1 day(s). Head circumference = 23.7 cm = 25 weeks, 6 day(s). Abdominal circumference = 22 cm = 26 weeks, 3 day(s). Femur length = 4.9 cm = 26 weeks, 4 day(s). Overall estimated sonographic age = 26 weeks, 2 day(s). heart rate is 141 beats per minute. Estimated weight is 979 grams position is cephalic. Cervix appears closed. movement is present. Impression: 1. Single living intrauterine with estimated sonographic age of 26 weeks, 2 day(s). 2. No sonographic abnormality identified. Signer Name: Donis Nelson MD Signed: 09/27/2019 3:54 PM Workstation Name: [id number]
[2019-09-28] MEDS: AMPICILLIN/NS 2 GM/100 ML 2 GM/100 ML BAG IV SCH ×2 (00:15→06:01)
[2019-09-28] MEDS: ERYTHROMYCIN LACTOBIONATE 250 MG in SODIUM CHLORIDE 0.9% 100 ML IV SCH (04:10)
[2019-09-28] MEDS ORDERED: METHYLERGONOVINE MALEATE 0.2 MG/ML VIAL IM ONE (08:29)
--- NOTE | 2019-09-28 08:50 | Procedure Note ---
OB Delivery Note - Delivery Date of Delivery: 09/28/19 Surgeon: RADHA CARPENTER Estimated blood loss: 200cc - Vaginal Delivery presentation: vertex Delivery position: OA Intrapartum events: labor-<37 weeks, PROM->1hr before delivery, precipitous labor- <3hr Delivery induction: none Delivery monitor: external FHT, external uterine Route of delivery: Delivery placenta: spontaneous Delivery cord: 3 umbilical vessels Episiotomy: none Delivery laceration: none Anesthesia: none Delivery comments: Viable female delivered over intact perineum precipitously. Weight .
[2019-09-28] MEDS: LACTATED RINGERS 1,000 ML IV SCH (08:53)
[2019-09-28] MEDS ORDERED: OXYTOCIN 20 UNIT/1000ML DRIP 20 UNITS/1,000 ML BAG IV SCH (09:00)
[2019-09-28] MEDS ORDERED: ACETAMINOPHEN 325 MG TAB PO PRN (10:33)
[2019-09-28] MEDS ORDERED: WITCH HAZEL/ GLYCERIN PAD TP PRN (10:33)
[2019-09-28] MEDS ORDERED: BENZOCAINE/MENTHOL 20/0.5% TOP SPRAY 56 GM TP PRN (10:33)
[2019-09-28] MEDS ORDERED: PROMETHAZINE 25 MG RECT SUPP PR PRN (10:33)
[2019-09-28] MEDS ORDERED: PROMETHAZINE 25 MG TAB PO PRN (10:33)
[2019-09-28] MEDS ORDERED: diphenhydrAMINE 25 MG CAP PO PRN (10:33)
[2019-09-28] MEDS ORDERED: LANOLIN/ZINC/DIMETHICONE (LANSINOH) 7 GM TP PRN (10:33)
[2019-09-28] MEDS ORDERED: ONDANSETRON 4 MG/2 ML INJ IV PRN (10:33)
[2019-09-28] MEDS ORDERED: MAGNESIUM HYDROXIDE (MOM) ORAL LIQD UDC PO PRN (10:33)
[2019-09-28] MEDS ORDERED: HYDROcodone/ACETAMINOPHEN 5-325 MG TAB PO PRN (10:33)
[2019-09-28] MEDS: IBUPROFEN 600 MG TAB PO SCH ×3 (11:06→23:38)
[2019-09-28 20:49] LABS: Hematocrit 27.5 % (30.3-42.9)
[2019-09-28] MEDS: DOCUSATE SODIUM 100 MG CAP PO SCH (22:03)
[2019-09-29] MEDS: IBUPROFEN 600 MG TAB PO SCH ×3 (05:16→18:24)
[2019-09-29] MEDS: DOCUSATE SODIUM 100 MG CAP PO SCH ×2 (12:00→21:12)
[2019-09-29] MEDS: PRENATAL VIT27-FE FUMARATE-FOLIC ACID VIT TAB PO SCH (12:00)
--- NOTE | 2019-09-29 12:19 | Progress Note ---
Assessment and Plan PPD 1 s/p . Doing well. Plan for discharge on tomorrow. Infant in NICU Subjective - Subjective Date of service: 09/29/19 Principal diagnosis: PPROM, UTI Patient reports: appetite normal, voiding normally, pain well controlled [place]: in NICU Objective - Vital Signs Latest vital signs: Vital Signs Temp Pulse Resp BP Pulse Ox 09/29/19 08:26 99.3 F 72 20 97/63 98 09/28/19 23:52 98.0 F 75 20 95/58 98 09/28/19 16:19 98.6 F 71 20 92/61 100 Intake and Output 09/28/19 09/29/19 09/29/19 22:59 06:59 14:59 Intake Total 480 240 480 Output Total 400 Balance 80 240 480 Intake: Oral 480 240 480 Output: Urine 400 Void 400 Other: Total, Intake Amount 480 240 480 Total, Output Amount 400 # Voids Void 2 1 2 - Exam Breasts: Present: deferred Cardiovascular: Present: Regular rate, Normal S1, Normal S2 Lungs: Present: Clear to auscultation, Normal air movement Abdomen: Present: normal appearance, soft, normal bowel sounds Vulva: both: normal Uterus: Present: normal, firm Extremities: Present: normal - Labs Labs: Abnormal lab results 09/28/19 Range/Units 20:33 Hgb 9.0 L (10.1-14.3) gm/dl Hct 27.5 L (30.3-42.9) %
[2019-09-30] MEDS: IBUPROFEN 600 MG TAB PO SCH (00:05)
--- NOTE | 2019-09-30 08:09 | Progress Note ---
Assessment and Plan A: PPD#2 s/p delivery at 27 wks after PPROM P: Routine care. Discharge later today with follow up in 2 wks Subjective - Subjective Date of service: 09/30/19 Principal diagnosis: PPROM, UTI Interval history: Pt feels well. She reports some swelling of elbows and knees since taking ibuprofen. Patient reports: appetite normal, voiding normally, pain well controlled, ambulating normally : in NICU Objective - Vital Signs Latest vital signs: Vital Signs Temp Pulse Resp BP Pulse Ox 09/30/19 00:40 97.7 F 66 20 101/66 100 09/29/19 16:34 97.9 F 63 20 102/66 100 09/29/19 08:26 99.3 F 72 20 97/63 98 Intake and Output 09/29/19 09/30/19 09/30/19 22:59 06:59 14:59 Intake Total 240 360 Balance 240 360 Intake: Oral 240 Intake, Free Water 360 Other: Total, Intake Amount 240 # Voids Void 1 1 - Exam Breasts: Present: deferred Abdomen: Present: soft Uterus: Present: fundal height below umbilicus Extremities: Present: normal
--- NOTE | 2019-09-30 08:23 | Discharge Summary ---
Providers - Providers Date of Admission: 09/26/19 13:49 Date of discharge: 09/30/19 Attending physician: CARISSA AGUSTIN Primary care physician: CARISSA AGUSTIN Hospitalization Reason for admission: rupture of membranes Delivery: Procedure details: Please see delivery note. Episiotomy: none Laceration: none Other procedures: none complications: none Discharge diagnosis: delivery [place] baby: female Hospital course: Pt admitted for PPROM and went on to have a which she tolerated well. Her course was uncomplicated. She met discharge criteria on PPD#2. She will follow up in 2 wks. Condition at discharge: Stable Disposition: - TO HOME OR SELFCARE - Discharge Diagnoses (1) premature rupture of membranes (PPROM) delivered, current hospitalization Status: Acute (2) delivery Status: Acute (3) Anemia Status: Acute Qualifiers: Anemia type: unspecified type Qualified Code(s): D64.9 - Anemia, unspecified Plan - Discharge Medications Prescriptions: Ferrous Sulfate [Feosol 325 MG tab] 325 mg PO BID #60 tablet Ibuprofen [Motrin] 600 mg PO Q6H PRN #30 tablet PRN Reason: Pain - Provider Discharge Summary Activity: routine, no sex for 6 weeks, no heavy lifting 4 weeks, no strenuous exercise Diet: routine Instructions: routine Additional instructions: [] Smoking cessation referral if applicable(refer to patient education folder for contact #) [] Refer to [facility]'s [facility] Center Booklet Call your doctor immediately for: * Fever > 100.5 * Heavy vaginal bleeding ( >1 pad per hour) * Severe persistent headache * Shortness of breath * Reddened, hot, painful area to leg or breast * Drainage or odor from incision. * Keep incision clean and dry at all times and follow doctor's instructions regarding bathing/showering - Follow up plan Follow up: MARK OGLESBY CNM [Advanced Practice Nurse] - 14 Days (Please schedule a follow up )
[2019-09-30] MEDS: PRENATAL VIT27-FE FUMARATE-FOLIC ACID VIT TAB PO SCH (09:21)
[2019-09-30] MEDS: DOCUSATE SODIUM 100 MG CAP PO SCH (09:22)
[2019-09-30 09:28] VITALS: BP 111/75
== END 2019-09-30 11:30 | disposition home or self-care (01) | DRG 774 ==
LOC: UNDOADMIN 11:32 → 3A 11:32 → LD 13:49 → OB 09-28 10:19
PROVIDERS: ADMIT Obstetrics & Gynecology; ATTEND Obstetrics & Gynecology
PROC: 10E0XZZ Delivery of Products of Conception, External Approach (ICD-10-PCS; principal; 2019-09-28)
DX: O60.12X0 Preterm labor second trimester with preterm delivery second trimester, not applicable or unspecified (principal); O75.3 Other infection during labor; O42.012 Preterm premature rupture of membranes, onset of labor within 24 hours of rupture, second trimester; O90.81 Anemia of the puerperium; D64.9 Anemia, unspecified; Z3A.27 27 weeks gestation of pregnancy; Z37.0 Single live birth; Z83.3 Family history of diabetes mellitus; Z82.49 Family history of ischemic heart disease and other diseases of the circulatory system
CPT/HCPCS: 36415; 76815; 76816; 81001; 83735; 85014; 85018; 85025; 86850; 86900; 86901; 87086; 88305; G0378; J0290; J0696; J0702; J1364; J2210; J2590; J3475; J7120